=== PATIENT | male | born 1985 | race Caucasian/White ===

== ENCOUNTER 2017-01-10 01:15 | Observation (INO) | payer OTHER | END 2017-01-10 21:22 | disposition short-term general hospital (02) | LOC: ER 01:15 → MS 04:19 | PROVIDERS: ADMIT Family Medicine | DX: R07.89 Other chest pain (principal); M54.2 Cervicalgia; I10 Essential (primary) hypertension; R00.2 Palpitations; F41.9 Anxiety disorder, unspecified; F32.9 Major depressive disorder, single episode, unspecified; R63.5 Abnormal weight gain; K59.00 Constipation, unspecified; M25.562 Pain in left knee; M25.561 Pain in right knee; K21.9 Gastro-esophageal reflux disease without esophagitis; Z82.49 Family history of ischemic heart disease and other diseases of the circulatory system; Z79.899 Other long term (current) drug therapy; Z79.891 Long term (current) use of opiate analgesic; Z68.42 Body mass index [BMI] 45.0-49.9, adult ==